=== PATIENT | male | born 2000 | race Caucasian/White ===

== ENCOUNTER 2018-11-02 14:57 | Emergency (ER) | payer SELFPAY ==
[~2018-11-02 14:57] MED LIST: AMOX-559 PO; CEPH-13 PO; IBUP600T22 PO; SILV20CR2 TP; TRIA15CR40 TP
--- NOTE | 2018-11-02 15:05 | ER Report ---
History and Physical Time Seen By MD: 15:02 Hx. of Stated Complaint: LOW BACK PAIN X 2 WEEKS, STARTED JOB AT [employer] 3 WEEKS AGO AND DOES LOT OF LIFTING. HPI/ROS CHIEF COMPLAINT: Low back pain HISTORY OF PRESENT ILLNESS: This is a 18-year-old male presents emergency department for low back pain per patient states that he recently started a new job, it does require a significant amount of lifting, he's had lower back pain for about 2 weeks. No loss of bowel or bladder, no numbness or tingling, no fevers, no sensation of urination but unable to void. No other complaints. No chest pain or shortness of breath. No nausea or vomiting. REVIEW OF SYSTEMS: Respiratory: No cough, no dyspnea. Cardiovascular: No chest pain, no palpitations. Gastrointestinal: No vomiting, no abdominal pain. Musculoskeletal: As above. Allergies: Coded Allergies: No Known Drug Allergies (Unverified , 11/02/18) Home Meds No Active Prescriptions or Reported Meds Past Medical/Surgical History Patient has a past medical and surgical history of bilateral wrist fractures, right leg fracture, smokes cigarettes. Reviewed Nurses Notes: Yes Hx Smoking: Yes (1ppd) Smoking Status: Current: Every Day Smoker Exposure to Second Hand Smoke?: Yes Hx Substance Use Disorder: No Hx Alcohol Use: No Constitutional Vital Sign - Last 24 Hours 11/02/18 11/02/18 15:00 17:10 Temp 97.9 Pulse 64 58 Resp 12 16 B/P (MAP) 122/75 109/62 (78) Pulse Ox 96 97 O2 Delivery Room Air Room Air Physical Exam General Appearance: The patient is alert, has no immediate need for airway protection and no current signs of toxicity. Eyes: Pupils equal and round no injection. Respiratory: Chest is non tender, lungs are clear to auscultation. Cardiac: regular rate and rhythm. Gastrointestinal: Abdomen is soft and non tender, no masses, bowel sounds normal . Musculoskeletal: Neck: Musculature to the left side of the spine is tense as compared to the right, no pain on the spinous process, no crepitus, obvious deformities or bruising. Extremities have full range of motion and are non tender. Skin: No rashes or lesions. DIFFERENTIAL DIAGNOSIS: After history and physical exam differential diagnosis was considered for back pain including but not limited to muscular pain, herniated disc, spine fracture, intra-abdominal causes and urinary tract infection. Medical Decision Making EKG/Imaging Imaging PATIENT NAME: Earnest Han : 2000 MR: [id number] V: [id number] EXAM DATE: ORDERING PHYSICIAN: MAURICIO CESPEDES TECHNOLOGIST: Location: 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 There is no acute fracture. The vertebral body alignment, heights and intervertebral disc spaces are maintained. Impression: 1. No acute osseous process. Report Dictated By: Igor Delgado DO at 11/02/2018 3:40 PM Report E-Signed By: Igor Delgado DO at 11/02/2018 3:40 PM WSN:[facility] ED Course/Re-evaluation ED Course Patient was admitted to a room. A history and physical obtained. Differential diagnoses were considered. An x-ray of the lumbar spine was negative for any acute osseous abnormalities. I did review his patient. He was given 60 mg IM Norflex. Instructed to follow-up with physical therapy for low back pain as well as [facility] if no resolution or recurrent back pain. Patient expressed understanding was discharged home. Decision to Disposition Date: Nov 02, 2018 Decision to Disposition Time: 16:21 Depart Departure Latest Vital Signs Vital Signs Date Time Temp Pulse Resp B/P (MAP) Pulse Ox O2 Delivery O2 Flow Rate FiO2 11/02/18 17:10 58 16 109/62 (78) 97 Room Air 11/02/18 15:00 97.9 Impression: Primary Impression: Low back pain Condition: Improved Disposition: HOME OR SELF-CARE Referrals: [facility] New Scripts No Active Prescriptions or Reported Meds Patient Instructions: Acute Low Back Pain (ED) Additional Instructions: There were no concerning findings on your Xray. Please follow up with your PCP or [facility] if no improvement after physical therapy. Drink plenty of water. Get plenty of rest. Take Ibuprofen or Tylenol as needed for pain. Return to the ED for any other concerns or worsening symptoms. Problem Qualifiers Primary Impression: Low back pain Chronicity: acute Back pain laterality: midline Sciatica presence: without sciatica Qualified Codes: M54.5 - Low back pain MAURICIO CESPEDES-BC Nov 02, 2018 15:05
--- NOTE | 2018-11-02 15:46 | RADIOLOGY IMAGING REPORT ---
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 There is no acute fracture. Th e vertebral body alignment, heights and intervertebral disc spaces are maintained. Impression: 1. No acute osseous process. Report Dictated By: Igor Delgado DO at 11/02/2018 3:40 PM Report E-Signed By: Igor Delgado DO at 11/02/2018 3:40 PM WSN:[email or web address]
[2018-11-02] MEDS ORDERED: ORPHENADRINE 60MG/2ML INJ IM ONE (16:00)
[2018-11-02 17:10] VITALS: BP 109/62
== END 2018-11-02 17:03 | disposition home or self-care (01) ==
LOC: ER 15:35
DX: M54.5 Low back pain (principal)
CPT/HCPCS: 72120; 96372; 99283; J2360